=== PATIENT | female | born 1930 | race Caucasian/White ===

== ENCOUNTER 2022-05-05 19:17 | Emergency (ER) | payer MEDICARE | END 2022-05-05 20:11 | disposition home or self-care (01) | LOC: JP.ED 19:17 | DX: J45.909 Unspecified asthma, uncomplicated (principal); F03.90 Unspecified dementia, unspecified severity, without behavioral disturbance, psychotic disturbance, mood disturbance, and anxiety; Z79.899 Other long term (current) drug therapy | CPT/HCPCS: 71045; 99284 ==